=== PATIENT | female | born 1985 | race African-American/Black ===

== ENCOUNTER 2023-08-07 11:48 | Emergency (ER) | payer SELFPAY ==
[~2023-08-07] VITALS: Ht 172.7 cm; Wt 117.0 kg
[2023-08-07 11:55] VITALS: O2SAT 91
[2023-08-07] MEDS: KETOROLAC 30MG/ML VIAL IM ONE (12:55)
[2023-08-07] MEDS ORDERED: TOPUD MT (13:54)
[2023-08-07 14:20] VITALS: BP 132/85; PULSE 82; RESP 15; TEMP 98.2
== END 2023-08-07 15:51 | disposition home or self-care (01) ==
LOC: ER 11:48
DX: S99.922A Unspecified injury of left foot, initial encounter (principal); Z98.890 Other specified postprocedural states; X58.XXXA Exposure to other specified factors, initial encounter; Y93.89 Activity, other specified; Y92.89 Other specified places as the place of occurrence of the external cause; Y99.8 Other external cause status
CPT/HCPCS: 99283; 73630; 96372; J1885